=== PATIENT | male | born 1975 | race Caucasian/White ===

== ENCOUNTER → 2019-07-13 | Outpatient (CLI) | payer OTHER ==
--- NOTE | 2019-07-13 10:17 | Diagnostic Imaging Report ---
PROCEDURE: CT abdomen and pelvis without contrast. TECHNIQUE: Multiple contiguous axial images were obtained through the abdomen and pelvis without the use of intravenous contrast. Auto Exposure Controls were utilized during the CT exam to meet ALARA standards for radiation dose reduction. INDICATION: IVC filter placement. There are no prior studies available for comparison. FINDINGS: Reportedly, the patient has had an IVC filter inserted. The filter is evident and seems to be in good position within the lumen of the inferior vena cava. The filter lies at approximately level L2 basically at the level of the renal vascular pedicle. There is no distortion of the fat about the inferior vena cava to suggest hemorrhage. The liver and spleen are prominent but within normal limits. The pancreas, the adrenals, the gallbladder, the kidneys, aorta and inferior vena cava show no sign of an acute abnormality. There is a large 5.8 x 9.3 cm hiatal hernia. The hernia is not visualized in its entirety. There is no pelvic mass or free fluid collection evident. The urinary bladder and prostate gland are grossly unremarkable. The appendix was visualized and is not abnormally thickened. The bone windows show no evidence for fracture or for destructive lesion. The images through the lung bases reveal that there is pleural thickening each lower lobe. There is also suggestion of a 1.6 cm noncalcified nodule near the right hemidiaphragm (image 14 of 93). This too but could be secondary to pleural thickening. Neoplastic mass would be unlikely in a patient of this age but cannot be entirely excluded. CT of chest would be recommended for further study. IMPRESSION: 1. The newly inserted inferior vena cava appears to be in good position and there is no distortion of the pericaval fat to suggest an acute abnormality. 2. There is no acute abnormality of the abdomen or pelvis noted otherwise. 3. There is a large hiatal hernia. 4. The nodular density near the right hemidiaphragm is of uncertain etiology. Considerations and recommendations as above. Dictated by: Dictated on workstation # [id number]
== END ==
LOC: RAD FS 09:03
PROVIDERS: ATTEND Chiropractor
DX: K44.9 Diaphragmatic hernia without obstruction or gangrene (principal); Z95.828 Presence of other vascular implants and grafts
CPT/HCPCS: 74176